=== PATIENT | female | born 1980 | race Caucasian/White ===

== ENCOUNTER 2016-07-18 06:43 | Emergency (ER) | payer OTHER ==
[~2016-07-18] VITALS: Ht 165.1 cm; Wt 49.9 kg
[~2016-07-18 06:43] MED LIST: BETA CAROT10000 UNIT PO; CYCLOBENZAPRINE10 M1 PO; DIAZEPAM2 M1 PO; EPIPEN 2-P0.3 MG/0.3 IM; MOBIC15 M1 PO; TRAMADOL HCL50 M1 PO
[2016-07-18 07:25] VITALS: BP 98/60
--- NOTE | 2016-07-18 07:26 | ED GENERAL ADULT ---
History of Present Illness General Chief Complaint: General Adult Stated Complaint: MED REFILLS, ANXIETY Source: patient Exam Limitations: no limitations Vital Signs & Intake/Output Vital Signs & Intake/Output Vital Signs Date Time Temp Pulse Resp B/P B/P Pulse O2 O2 Flow FiO2 Mean Ox Delivery Rate 07/18 0725 97.8 78 16 98/60 97 07/18 0722 97 Allergies Coded Allergies: Sulfa (Sulfonamide Antibiotics) (ANAPHYLAXIS 01/17/16) venom-honey bee (ANAPHYLAXIS 01/17/16) Reconcile Medications Alprazolam (Xanax) 0.5 MG TABLET 1 TAB PO BIDP PRN ANXIETY Alprazolam (Xanax) 0.5 MG TABLET 1 TAB PO BIDP PRN ANXIETY Beta-Carotene (Beta Carotene) (Unknown Strength) CAPSULE (Unknown Dose) PO DAILY SUPPLEMENT (Reported) Cyclobenzaprine HCl 10 MG TABLET 1 TAB PO TID PRN MUSCLE RELAXANT MAY CAUSE DROWSINESS Diazepam 2 MG TABLET 1-2 TAB PO Q6 PRN muscle relaxant Epinephrine (Epipen 2-Gutierrez) 0.3 MG/0.3 ML AUTO.INJCT 0.3 MG IM AD PRN ALLERGIC REACTION (Reported) Meloxicam (Mobic) 15 MG TABLET 1 TAB PO DAILY PRN PAIN/INFLAMMATION Tramadol HCl 50 MG TABLET 1-2 TAB PO Q6 PRN pain Triage Note: PT STATES SHE TOOK HERSELF OFF METHADONE BECAUSE SHE WAS ON IT FOR A FEW YEARS. PT ALSO TAKES XANAX QHS TO HELP HER SLEEP STATES THAT SHE HAS BEEN TAKING MORE TO HELP HER THROUGH THE WITHDRAWELS FROM THE METHADONE AND RUN OUT. PT WENT TO SEE DR. LIANG AND HE WAS UNABLE TO GET HER MEDS TO GO THROUGH AT THE PHARMACY BECAUSE IT IS TO EARLY FOR HER TO FILL. PT STATES SHE IS ABLE TO P/UP HER PRESCRIPTION ON SUNDAY AND JUST NEEDS A FEW PILLS TO HELP HER THROUGH. PT REPORTS THAT SHE IS HAVING DIARRHEA AND NAUSEA AT THIS TIME HAS NOT HAD XANAX IN 5 DAYS. Triage Nurses Notes Reviewed? yes : No Patient currently breastfeeds: No HPI: This is a 35 year old female who recently came off methadone with an presents with shakiness, nausea and diarrhea. her last ast dose of xanax was 5 days ago. She is due for refill on . She has been taking occasional extra doses secondary to anxiety because she took herself off of methadone. She discussed it with her primary care doctor who states he could refill the medication because her new prescription is due on the . She has not had Xanax in 5 days and is starting to feel shaky. History of seizure many years ago when she was on 2 mg of Xanax and attempted to discontinue. No SI or HI. She reports wanting to eventually get off of Xanax as well. The patient is 7 months . Past History Travel History Traveled to [place] past 21 day No Medical History Any Pertinent Medical History? see below for history Psychiatric: anxiety, HISTORY OF OPIATE DEPENDENCE Other Medical Hx: left shoulder surgery Surgical History Surgical History: left shoulder surgery Psychosocial History What is your primary language Persian Tobacco Use: Current Daily Use Daily Tobacco Use Amount/Type: => 5 Cigarettes daily ETOH Use: occasional use Illicit Drug Use: denies illicit drug use Family History Hx Contributory? No Review of Systems Review of Systems Constitutional: Denies: chills, fever. Respiratory: Denies: cough, short of breath, sputum production. Cardiovascular: Denies: chest pain, palpitations. Neurological/Psychological: Reports: anxiety. Denies: confusion, depressed, emotional problems. Hematologic/Endocrine: Denies: bruising, bleeding. Immunologic/Allergic: Denies: splenectomy. Physical Exam Physical Exam General Appearance: alert, awake, thin Head: atraumatic, normal appearance Eyes: Bilateral: PERRL, EOMI. Ears, Nose, Throat: normal pharynx, hearing grossly normal Neck: normal inspection, supple, full range of motion Respiratory: normal breath sounds, chest non-tender, no respiratory distress Neurologic/Psych: no motor/sensory deficits, awake, alert, oriented x 3 Skin: intact, normal color, warm/dry Core Measures ACS in differential dx? No CVA/TIA Diagnosis: No Severe Sepsis Present: No Septic Shock Present: No Progress Differential Diagnoses I considered the following diagnoses in my evaluation of the patient: [Xanax dependence, Xanax withdrawal] Plan of Care: Patient is well kempt, awake alert and oriented. Requesting a prescription for a few pills of Xanax to get her through . Last dose was on Sunday. Initial ED EKG: none Departure Departure Time of Disposition: 733 Disposition: HOME OR SELF CARE Condition: Stable Clinical Impression Primary Impression: Benzodiazepine withdrawal Referrals: PATIENT HAS NO PRIMARY CARE DR (PCP/Family) Additional Instructions: TAKE THE MEDICATIONS DIRECTED. FOLLOW UP WITH YOUR PSYCHIATRIST FOR YOUR REGULAR PRESCRIPTIONS. Departure Forms: Customer Survey General Discharge Information Prescriptions: Current Visit Scripts Alprazolam (Xanax) 1 TAB PO BIDP PRN ANXIETY #5 TAB Alprazolam (Xanax) 1 TAB PO BIDP PRN ANXIETY #5 TAB Critical Care Note Critical Care Note Critical Care Time: non-applicable
[2016-07-18] MEDS ORDERED: XANAX0.5 M1 PO ×2 (07:35→07:56)
[2016-07-19] MEDS ORDERED: CHLORDIAZEPOXID25 M3 PO (07:35)
[2016-07-19] MEDS ORDERED: ZOFRAN ODT4 M1 SL (07:35)
== END 2016-07-18 07:35 ==
LOC: ERH 06:43
DX: F13.239 Sedative, hypnotic or anxiolytic dependence with withdrawal, unspecified (principal)
CPT/HCPCS: 99281

== ENCOUNTER 2016-07-19 06:41 | Emergency (ER) | payer OTHER ==
[~2016-07-19] VITALS: Ht 160 cm; Wt 52.6 kg
[~2016-07-19 06:41] MED LIST changes: +XANAX0.5 M1 PO
[2016-07-19 07:10] VITALS: BP 90/60
[2016-07-19] MEDS ORDERED: ZOFRAN ODT4 M1 SL (07:35)
[2016-07-19] MEDS ORDERED: CHLORDIAZEPOXID25 M3 PO (07:35)
--- NOTE | 2016-07-19 07:37 | ED GENERAL ADULT ---
History of Present Illness General Chief Complaint: ETOH/Drug Related Complaint Stated Complaint: BENZO WITHDRAWAL Source: patient, old records Exam Limitations: no limitations Vital Signs & Intake/Output Vital Signs & Intake/Output Vital Signs Date Time Temp Pulse Resp B/P B/P Pulse O2 O2 Flow FiO2 Mean Ox Delivery Rate 07/19 0710 98.1 100 20 90/60 98 Room Air Allergies Coded Allergies: Sulfa (Sulfonamide Antibiotics) (ANAPHYLAXIS 07/19/16) venom-honey bee (ANAPHYLAXIS 07/19/16) Reconcile Medications Alprazolam (Xanax) 0.5 MG TABLET 1 TAB PO BIDP PRN ANXIETY Alprazolam (Xanax) 0.5 MG TABLET 1 TAB PO BIDP PRN ANXIETY Beta-Carotene (Beta Carotene) (Unknown Strength) CAPSULE (Unknown Dose) PO DAILY SUPPLEMENT (Reported) Chlordiazepoxide HCl 25 MG CAPSULE 1 TAB PO TIDPRN PRN anxiety 1-2 tabs 3 times a day for 2 days 1-2 tabs 2 times a day for 2 days 1-2 tabs 1 time a day for 2 days Cyclobenzaprine HCl 10 MG TABLET 1 TAB PO TID PRN MUSCLE RELAXANT MAY CAUSE DROWSINESS Diazepam 2 MG TABLET 1-2 TAB PO Q6 PRN muscle relaxant Epinephrine (Epipen 2-Gutierrez) 0.3 MG/0.3 ML AUTO.INJCT 0.3 MG IM AD PRN ALLERGIC REACTION (Reported) Meloxicam (Mobic) 15 MG TABLET 1 TAB PO DAILY PRN PAIN/INFLAMMATION Ondansetron (Zofran Odt) 4 MG TAB.RAPDIS 1 TAB SL TID PRN nausea Tramadol HCl 50 MG TABLET 1-2 TAB PO Q6 PRN pain Triage Note: TRIAGE: PATIENT TO ER FROM HOME REPORTS SEEN HERE ON 07/18/16 BY MD CASILLAS, ARRIVES W/ D/C PAPERWORK FROM PREVIOUS VISIT FOR BENZO W/D. PATIENT REPORTS "WENT TO FILL THE RX BUT IT'S TOO SOON. CAN'T FILL IT UNTIL SUNDAY." PATIENT STATES "CAN YOU DO ANYTHING FOR ME BEFORE THEN BECAUSE I FEEL VERY NERVOUS AND HAVBE A HEADACHE AND FEEL NAUSEOUS AND FEEL LIKE, WHAT IF I HAVE A SEIZURE!?" PATIENT REPORTS LAST BENZO TAKEN 6-7 DAYS AGO, ALSO REPORTS RECENTLY OFF [facility]. PATIENT FIDGITY AND ANXIOUS THROUGHOUT TRIAGE. Triage Nurses Notes Reviewed? yes Onset: reports 4 days Duration: day(s):, constant, continues in ED Timing: recent history Severity: severe No Modifying Factors: none LMP (ages 10-50): unknown : No Patient currently breastfeeds: No HPI: Patient reports no Xanax for 4 days feeling shaky jittery anxious with insomnia anorexia nausea. She denies fever chills vomiting diarrhea chest pain cough shortness of breath headache dysuria rash bleeding . Past History Travel History Traveled to [place] past 21 day No Medical History Any Pertinent Medical History? 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 No Review of Systems Review of Systems Constitutional: Reports: see HPI, chills. EENTM: Reports: no symptoms. Respiratory: Reports: no symptoms. Cardiovascular: Reports: no symptoms. GI: Reports: see HPI, nausea. Genitourinary: Reports: no symptoms. Musculoskeletal: Reports: no symptoms. Skin: Reports: no symptoms. Neurological/Psychological: Reports: see HPI, anxiety. Hematologic/Endocrine: Reports: no symptoms. Immunologic/Allergic: Reports: no symptoms. All Other Systems: Reviewed and Negative Physical Exam Physical Exam General Appearance: well developed/nourished, alert, awake, anxious, mild distress, thin Head: atraumatic, normal appearance Eyes: Bilateral: normal appearance, PERRL, EOMI. Ears, Nose, Throat: normal pharynx, normal ENT inspection Neck: normal inspection, supple, full range of motion, no midline tenderness Respiratory: normal breath sounds, chest non-tender, no respiratory distress, quiet respiration, lungs clear Cardiovascular: regular rate/rhythm, normal peripheral pulses, norml femoral pulses equa Peripheral Pulses: 4+ carotid (R), 4+ carotid (L) Gastrointestinal: normal bowel sounds, soft, non-tender, no organomegaly Back: normal inspection, normal range of motion Extremities: normal inspection, normal capillary refill, normal range of motion, no edema Neurologic/Psych: no motor/sensory deficits, awake, alert, oriented x 3, normal gait, box stamper II-XII nml as tested Reflexes: 2+: bicep (R), bicep (L). Skin: intact, normal color, warm/dry Lymphatic: no anterior cervical mayela Core Measures ACS in differential dx? No CVA/TIA Diagnosis: No Severe Sepsis Present: No Septic Shock Present: No Progress Differential Diagnoses I considered the following diagnoses in my evaluation of the patient: Benzodiazepine withdrawal abuse Plan of Care: librium zofran Initial ED EKG: none Departure Departure Time of Disposition: 733 Disposition: HOME OR SELF CARE Condition: Stable Clinical Impression Primary Impression: Benzodiazepine dependence Referrals: JOSEPH ROBLES MD Departure Forms: General Discharge Information Prescriptions: Current Visit Scripts Chlordiazepoxide HCl 1 TAB PO TIDPRN PRN anxiety #5 CAP 1-2 tabs 3 times a day for 2 days 1-2 tabs 2 times a day for 2 days 1-2 tabs 1 time a day for 2 days Ondansetron (Zofran Odt) 1 TAB SL TID PRN nausea #5 TAB Critical Care Note Critical Care Note Critical Care Time: non-applicable
== END 2016-07-19 07:55 ==
LOC: ERH 06:41
DX: F13.20 Sedative, hypnotic or anxiolytic dependence, uncomplicated (principal)

== ENCOUNTER 2017-06-28 14:45 | Emergency (ER) | payer OTHER ==
[~2017-06-28] VITALS: Ht 160 cm; Wt 54.4 kg
[~2017-06-28 14:45] MED LIST changes: +CHLORDIAZEPOXID25 M3 PO; +CLEOCIN HCL150 M1 PO; +PERCOCET 5-3251 EACH PO; +ZOFRAN ODT4 M1 SL
[2017-06-28 14:58] VITALS: BP 142/94
[2017-06-28 15:41] LABS: ABSOLUTE BASOPHIL COUNT 0.1 /CUMM (0.0-0.2); ABSOLUTE EOSINOPHIL COUNT 0.4 /CUMM (0.0-0.7); ABSOLUTE LYMPH COUNT 3.3 /CUMM (1.2-3.4); ABSOLUTE MONOCYTE COUNT 0.4 /CUMM (0.10-0.60); BASOPHIL % 0.7 % (0.0-2.0); EOSINOPHIL % 3.2 % (0-5); GRANULOCYTE % 63.3 % (42.2-75.2); HEMATOCRIT 41.7 % (37-47); MEAN CORPUSCULAR HGB 31.2 PG (27.0-31.0); MEAN CORPUSCULAR HGB CONC 34.1 G/DL (33.0-37.0); MEAN CORPUSCULAR VOLUME 91.4 FL (81.0-99.0); MEAN PLATELET VOLUME 7.8 FL (7.4-10.4); PLATELET COUNT 332 /CUMM (130-400); RBC DISTRIBUTION WIDTH 13.8 % (11.5-14.5); RED BLOOD CELL CT 4.57 /CUMM (4.20-5.40); WHITE BLOOD CELL COUNT 11.1 /CUMM (4.8-10.8)
[2017-06-28] MEDS ORDERED: CIPRO500 M1 PO (17:20)
[2017-06-28] MEDS ORDERED: PERCOCET 5-3251 EACH PO (17:20)
--- NOTE | 2017-06-28 17:22 | ED GI/GU/ABDOMINAL COMPLAINT ---
History of Present Illness General Chief Complaint: Female Urogenital Problems Stated Complaint: "I THINK I HAVE A KIDNEY INFECTION" Source: patient Exam Limitations: no limitations Vital Signs & Intake/Output Vital Signs & Intake/Output Vital Signs Date Time Temp Pulse Resp B/P B/P Pulse O2 O2 Flow FiO2 Mean Ox Delivery Rate 06/28 1458 97.5 114 18 142/94 99 Room Air Allergies Coded Allergies: Sulfa (Sulfonamide Antibiotics) (ANAPHYLAXIS 07/19/16) codeine (NAUSEA 05/10/17) venom-honey bee (ANAPHYLAXIS 07/19/16) Reconcile Medications Alprazolam (Xanax) 0.5 MG TABLET 1 TAB PO BIDP PRN ANXIETY Alprazolam (Xanax) 0.5 MG TABLET 1 TAB PO BIDP PRN ANXIETY Chlordiazepoxide HCl 25 MG CAPSULE 1 TAB PO TIDPRN PRN anxiety 1-2 tabs 3 times a day for 2 days 1-2 tabs 2 times a day for 2 days 1-2 tabs 1 time a day for 2 days Ciprofloxacin HCl (Cipro) 500 MG TABLET 1 TAB PO BID uti Clindamycin HCl (Cleocin HCl) 150 MG CAPSULE 1 CAP PO TID dental infection Epinephrine (Epipen 2-Gutierrez) 0.3 MG/0.3 ML AUTO.INJCT 0.3 MG IM AD PRN ALLERGIC REACTION (Reported) Ondansetron (Zofran Odt) 4 MG TAB.RAPDIS 1 TAB SL TID PRN nausea Oxycodone HCl/Acetaminophen (Percocet 5-325 MG Tablet) 5 MG-325 MG TABLET 1-2 TAB PO Q6P PRN PAIN Oxycodone HCl/Acetaminophen (Percocet 5-325 MG Tablet) 5 MG-325 MG TABLET 1 TAB PO BID PRN pain Triage Note: PT TO ER C/C UTI SUNDAY, NOW HAS SEVERE LEFT FLANK PAIN, BODY ACHES, CHILLS. PER PT, "I JUST CRANBERRY JUICE TO GET RID OF MY UTI". URGENCY AND DYSURIA PERSISTS Triage Nurses Notes Reviewed? yes ? n Is pt currently ? No Onset: Gradual Duration: day(s): Timing: recent history Quality/Severity: moderate Location: left flank HPI: 36-year-old female presents emergency department complaining of dysuria, urinary frequency, left flank pain x 4 days. Patient has a history of previous UTI. 4 days ago she began experiencing symptoms consistent with previous UTIs. Patient was experiencing dysuria, suprapubic discomfort, urinary frequency, hematuria. Patient recurrent juice however her symptoms did not go away. Over the last 2 days she has been experiencing left flank pain, fevers, chills, body aches, malaise. Flank pain is described as nonradiating, dull aching pain. Patient also reports 2 episodes of nonbloody diarrhea recently. Patient has no previous history of pyelonephritis or kidney stone. The patient is sexually active with her . Patient denies vomiting, constipation, rash. (Oriana Benítez) Past History Travel History Traveled to [place] past 21 day No Medical History Any Pertinent Medical History? 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 No (Oriana Benítez) Review of Systems Review of Systems Constitutional: Reports: see HPI. EENTM: Reports: no symptoms. Respiratory: Reports: no symptoms. Cardiovascular: Reports: no symptoms. GI: Reports: see HPI. Genitourinary: Reports: see HPI. Musculoskeletal: Reports: no symptoms. Skin: Reports: no symptoms. Neurological/Psychological: Reports: no symptoms. Hematologic/Endocrine: Reports: no symptoms. Immunologic/Allergic: Reports: no symptoms. All Other Systems: Reviewed and Negative (Oriana Benítez) Physical Exam Physical Exam General Appearance: well developed/nourished, no apparent distress, alert, awake Head: atraumatic, normal appearance Eyes: Bilateral: normal appearance. Ears, Nose, Throat, Mouth: hearing grossly normal Neck: normal inspection, supple, full range of motion Respiratory: normal breath sounds, no respiratory distress, lungs clear Cardiovascular: regular rate/rhythm Gastrointestinal: normal bowel sounds, soft, non-tender, no organomegaly Back: left CVA tenderness Extremities: normal range of motion Neurologic/Psych: awake, alert, oriented x 3 Skin: intact, normal color, warm/dry Core Measures ACS in differential dx? No Sepsis Present: No Sepsis Focused Exam Completed? No (Layla ASHTON,Oriana Milligan) Progress Differential Diagnosis: appendicitis, intrauterine , kidney stone, ovarian cyst, PID/cervicitis, UTI/pyelo Plan of Care: Orders Procedure Date/time Status Add-on Test (ER Only) 06/28 1721 Active URINE 06/28 1446 Complete URINALYSIS 06/28 1446 Complete COMPREHENSIVE METABOLIC PANEL 06/28 1446 Complete CBC WITHOUT DIFFERENTIAL 06/28 1446 Complete Laboratory Tests 06/28/17 1535: Anion Gap 15, Estimated GFR > 60, BUN/Creatinine Ratio 10.0, Glucose 101 H, Calcium 10.6 H, Total Bilirubin 0.4, AST 15, ALT 22, Alkaline Phosphatase 42, Total Protein 7.8, Albumin 5.1 H, Globulin 2.7, Albumin/Globulin Ratio 1.9, CBC w Diff NO MAN DIFF REQ, RBC 4.57, MCV 91.4, MCH 31.2 H, MCHC 34.1, RDW 13.8, MPV 7.8, Gran % 63.3, Lymphocytes % 29.4, Monocytes % 3.4, Eosinophils % 3.2, Basophils % 0.7, Absolute Granulocytes 7.0 H, Absolute Lymphocytes 3.3, Absolute Monocytes 0.4, Absolute Eosinophils 0.4, Absolute Basophils 0.1 06/28/17 1502: Urine Color YEL, Urine Clarity CLEAR, Urine pH 6.5, Ur Specific [place] <= 1.005 , Urine Protein NEG, Urine Ketones NEG, Urine Nitrite NEG, Urine Bilirubin NEG, Urine Urobilinogen 0.2, Ur Leukocyte Esterase SMALL H, Ur Microscopic SEDIMENT EXAMINED, Urine RBC 3-5, Urine WBC 15-25 H, Ur Epithelial Cells MOD H, Urine Bacteria MOD H, Urine Hemoglobin TRACE-INTACT, Urine Glucose NEG, Urine Test NEGATIVE UA shows evidence for urine infection. Given patient's left-sided CVA tenderness she likely has pyelonephritis. Patient has no abdominal tenderness on physical exam. Her blood work shows mild leukocytosis, otherwise blood work is within normal limits. Patient is young and otherwise healthy. Patient states that she's been waiting in the waiting room for 3 hours, she would just like to go home now. Based on patient's current symptoms is low suspicion for acute appendicitis at this time, CT imaging deferred given her most likely diagnosis is pyelonephritis. Low suspicion for obstructing kidney stone given patient's dural/mild flank pain, minimal blood in urine. Patient in no acute distress, nontoxic appearing, vital signs are stable. The patient was given strict return precautions. She was started on Cipro antibiotics and culture is pending. Patient instructed to increase oral fluid intake. Patient informed that at times visuals require hospitalization for pyelonephritis and she understands red flag symptoms and when to return. The patient agrees with the plan of care. Initial ED EKG: none (Layla ASHTON,Oriana Milligan) Departure Departure Disposition: HOME OR SELF CARE Condition: Stable Clinical Impression Primary Impression: Pyelonephritis Referrals: Patient Has No Primary Care Dr (PCP/Family) Additional Instructions: Take full course of antibiotics. Take Percocet as prescribed as needed for pain. You may also take this medication with 600 mg ibuprofen and an additional 325 mg Tylenol for fevers and pain. If your symptoms are worsening or you're having other concerns please return to the emergency department. We will call you if the results of your culture are abnormal. Please note that there might be incidental findings in your evaluation that are unrelated to the current emergency department visit. Please notify your primary care doctor about this emergency department visit in order to obtain and review all of the testing performed so that these incidental findings can be monitored as needed. If you had an x-ray performed, please understand that some fractures may not be seen on the initial set of x-rays. If your symptoms persist you might need a repeat set of x-rays to check for such a fracture. If you had a laceration evaluated, please understand that foreign bodies such as glass or wood may not be visible to the naked eye or on plain x-rays. If the wound becomes red, swollen, increasingly more painful or if there is any drainage from the wound, please have it reevaluated by a physician for the possibility of a retained foreign body. If you're unable to follow up as outlined in the discharge instructions please return to the emergency department. Thank you for choosing the [facility] Emergency Department for your care. It was a pleasure to serve you today. Departure Forms: Customer Survey General Discharge Information Prescriptions: Current Visit Scripts Ciprofloxacin HCl (Cipro) 1 TAB PO BID #20 TAB Oxycodone HCl/Acetaminophen (Percocet 5-325 MG Tablet) 1 TAB PO BID PRN pain #10 TAB (Layla ASHTON,Oriana Milligan) PA/CUSTOMER ENGAGEMENT SPECIALIST Co-Sign Statement Statement: ED Attending supervision documentation- [] I saw and evaluated the patient. I have also reviewed all the pertinent lab results and diagnostic results. I agree with the findings and the plan of care as documented in the PA's/CUSTOMER ENGAGEMENT SPECIALIST's documentation. [X] I have reviewed the ED Record and agree with the PA's/CUSTOMER ENGAGEMENT SPECIALIST's documentation. [] Additions or exceptions (if any) to the PAs/CUSTOMER ENGAGEMENT SPECIALIST's note and plan are summarized below: [] (Reny JARA,Jose Luis Fry)
== END 2017-06-28 17:30 ==
LOC: ERH 14:45
PROVIDERS: Physician Assistant Medical
DX: N12 Tubulo-interstitial nephritis, not specified as acute or chronic (principal)
CPT/HCPCS: 81001; 81025

== ENCOUNTER 2017-09-24 04:17 | Emergency (ER) | payer OTHER ==
[~2017-09-24] VITALS: Ht 160 cm; Wt 53.5 kg
[~2017-09-24 04:17] MED LIST changes: +CHERATUSSIN AC118 M1 PO; +CIPRO500 M1 PO; +CLARINEX5 M1 PO; +FLONASE ALLERG9.9 ML NAS; +NORCO 5-325 TA1 EACH PO; +PROAIR HFA8.5 GM INH; +TESSALON PERLE100 M1 PO; +VENTOLIN HFA18 GM INH; +ZITHROMAX250 M2 PO
--- NOTE | 2017-09-24 04:24 | ED GENERAL ADULT ---
History of Present Illness General Chief Complaint: Trunk Injury Stated Complaint: PT THINKS BOKE SOME RIBS ON LEFT SIDE Source: patient Exam Limitations: no limitations Vital Signs & Intake/Output Vital Signs & Intake/Output Vital Signs Date Time Temp Pulse Resp B/P B/P Pulse O2 O2 Flow FiO2 Mean Ox Delivery Rate 09/24 530 99 Room Air 09/24 530 72 103/71 99 Room Air 09/24 0429 98.7 88 18 99/61 99 Room Air Allergies Coded Allergies: Sulfa (Sulfonamide Antibiotics) (ANAPHYLAXIS 07/12/17) codeine (NAUSEA 07/12/17) venom-honey bee (ANAPHYLAXIS 07/12/17) naproxen (STOMACH DISCOMFORT 07/12/17) Reconcile Medications Albuterol Sulfate (Proair Hfa) 90 MCG HFA.AER.AD 2 PUF INH Q4-6 PRN PRN WHEEZING,TROUBLE BREATHING Azithromycin (Zithromax) 250 MG TABLET 1 DP PO AD BRONCHITIS 2 the first day followed by 1 for days 2-5 Codeine Phosphate/Guaifenesi (Cheratussin AC Syrup) 10 MG-100 MG/5 ML LIQUID 5 -10 ML PO Q6P PRN COUGH Triage Nurses Notes Reviewed? yes Onset: Abrupt Duration: minute(s): Timing: single episode today HPI: 36 year old female presents to the emergency department with left sided rib pain after breaking here sons fall at the playground today at 1:30. P.m. She complains of tenderness and pain with any type of movement. She denies abdominal pain. She does have scant ecchymosis to the left upper chest wall, it appears faint. Approximately the size of a quarter. Past History Travel History Traveled to [place] past 21 day No Medical History Any Pertinent Medical History? 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 No Review of Systems Review of Systems Constitutional: Reports: see HPI. Denies: fever. EENTM: Reports: no symptoms. Denies: blurred vision, double vision, visual changes. Respiratory: Reports: see HPI. Cardiovascular: Reports: no symptoms. Denies: chest pain, palpitations. GI: Reports: no symptoms. Denies: abdominal pain. Genitourinary: Reports: no symptoms. Musculoskeletal: Reports: see HPI. Skin: Reports: no symptoms. Neurological/Psychological: Reports: no symptoms. Hematologic/Endocrine: Reports: see HPI. Denies: bleeding. Immunologic/Allergic: Reports: no symptoms. All Other Systems: Reviewed and Negative Physical Exam Physical Exam General Appearance: well developed/nourished, alert, awake, mild distress Head: atraumatic, normal appearance Eyes: Bilateral: normal appearance, PERRL, EOMI. Ears, Nose, Throat: normal ENT inspection Neck: normal inspection, full range of motion Respiratory: normal breath sounds, no respiratory distress Cardiovascular: regular rate/rhythm Peripheral Pulses: 4+ radial (R), 4+ radial (L) Gastrointestinal: soft, non-tender Back: normal inspection Extremities: normal inspection, normal range of motion Neurologic/Psych: no motor/sensory deficits, awake, alert, oriented x 3 Skin: ecchymosis (left axillary area) Comments: No tenderness to deep palpation of the left upper quadrant. Core Measures ACS in differential dx? No CVA/TIA Diagnosis: No Sepsis Present: No Sepsis Focused Exam Completed? No Progress Differential Diagnoses I considered the following diagnoses in my evaluation of the patient: [ Pneumothorax, rib fracture, spleen injury, substance abuse] Plan of Care: Orders Procedure Date/time Status Add-on Test (ER Only) 09/24 0530 Active URINE DRUGS OF ABUSE 09/24 044 Complete URINE 09/24 0425 Complete Laboratory Tests 09/24/17 0440: Urine Opiates Screen < 100, Methadone Screen 52, Barbiturate Screen 82, Ur Phencyclidine Scrn < 6.00, Amphetamines Screen 123, U Benzodiazepines Scrn > 800 H, Urine Cocaine Screen > 1000 H, Urine Cannabis Screen > 80.00 H, Urine Test NEGATIVE Initial ED EKG: none Departure Departure Disposition: STILL A PATIENT Condition: Stable Clinical Impression Primary Impression: Rib injury Referrals: Patient Has No Primary Care Dr (PCP/Family) Departure Forms: Customer Survey General Discharge Information Comments 5:40 AM Upon reevaluation The patient is sleepy but wakes to verbal stimuli. She is trying to arrange for a ride home. Abdomen is again soft and nontender, she has no tenderness to the left upper quadrant. x-rays are negative. The patient requested additional medications for pain. Urine drug screen was concerning for substance abuse. The patient was advised to take Tylenol or Advil for the rib pain and to follow-up with her doctor this week. She is ambulating with a steady gait. She called her for a ride home. Critical Care Note Critical Care Note Critical Care Time: non-applicable
[2017-09-24 05:31] VITALS: BP 103/71
--- NOTE | 2017-09-24 05:32 | RADIOLOGY REPORT ---
EXAMINATION: XR RIBS, LEFT CLINICAL INFORMATION: Left rib pain COMPARISON: None TECHNIQUE: 2 views of the left ribs were obtained. PA view of the chest FINDINGS: Lungs are clear. No consolidation, pneumothorax, or pleural effusion. The cardiomediastinal silhouette and pulmonary vasculature are normal. Osseous structures are unremarkable. Ribs are intact. No fractures are identified. IMPRESSION: Clear lungs. No focal rib abnormality.
== END 2017-09-24 06:30 ==
LOC: ERH 04:17
DX: S29.9XXA Unspecified injury of thorax, initial encounter (principal); R07.81 Pleurodynia; X50.9XXA Other and unspecified overexertion or strenuous movements or postures, initial encounter; Y93.9 Activity, unspecified; Y92.830 Public park as the place of occurrence of the external cause
CPT/HCPCS: 71100-LT; 80307; 81025

== ENCOUNTER 2017-11-02 09:55 | Emergency (ER) | payer OTHER ==
[~2017-11-02] VITALS: Ht 160 cm; Wt 57.2 kg
[2017-11-02] MEDS ORDERED: NORCO 5-325 TA1 EACH PO (11:58)
[2017-11-02] MEDS ORDERED: AUGMENTIN 875-1 EACH PO (11:58)
--- NOTE | 2017-11-02 11:59 | ED THROAT/DENTAL COMPLAINT ---
History of Present Illness General Chief Complaint: Sore Throat, Dental Pain Stated Complaint: DENTAL PAIN Source: patient Exam Limitations: no limitations Vital Signs & Intake/Output Vital Signs & Intake/Output Vital Signs Date Time Temp Pulse Resp B/P B/P Pulse O2 O2 Flow FiO2 Mean Ox Delivery Rate 11/02 0959 98.5 118 18 121/87 99 Room Air Allergies Coded Allergies: Sulfa (Sulfonamide Antibiotics) (ANAPHYLAXIS 07/12/17) codeine (NAUSEA 07/12/17) venom-honey bee (ANAPHYLAXIS 07/12/17) naproxen (STOMACH DISCOMFORT 07/12/17) Reconcile Medications Albuterol Sulfate (Proair Hfa) 90 MCG HFA.AER.AD 2 PUF INH Q4-6 PRN PRN WHEEZING,TROUBLE BREATHING Amoxicillin/Potassium Clav (Augmentin 875-125 Tablet) 875 MG-125 MG TABLET 1 TAB PO BID DENTAL INFECTION Azithromycin (Zithromax) 250 MG TABLET 1 DP PO AD BRONCHITIS 2 the first day followed by 1 for days 2-5 Codeine Phosphate/Guaifenesi (Cheratussin AC Syrup) 10 MG-100 MG/5 ML LIQUID 5 -10 ML PO Q6P PRN COUGH Hydrocodone/Acetaminophen ([place] 5-325 Tablet) 5 MG-325 MG TABLET 1-2 TAB PO Q4-6 PRN PRN SEVERE PAIN Triage Note: 37F REPORTS SHE HAD AN ABSCESS TO BOTTOM LEFT TOOTH/GUM LINE, INTERMITTENT PAIN AND EXACERBATION OF PAIN. REPORTS BLEEDING AND YELLOW PURULENT DRAINAGE RECENTLY. NOT CURRENTLY ON ANTIBIOTICS. WAS REFERRED TO AN ORAL SURGEON BUT SHE CANNOT GET ENOUGH OF THE COST COVERED FOR SURGICAL INTERVENTION. AFEBRILE. TOOK MOTRIN 600MG 5:30 AND ALEVE AT 6:30AM. MEDICATED WITH TYLENOL IN TRIAGE Triage Nurses Notes Reviewed? yes Onset: Abrupt Duration: week(s): (3), constant, continues in ED, getting worse Timing: recent history Injury Environment: home Severity: moderate, severe Severity Numbers: 8 No Modifying Factors: none Modifying Factors: Worsens With: movement. : No Patient currently breastfeeds: No HPI: 37-year-old female history of anxiety, chronic dental pain presents for evaluation of worsening pain in her teeth. Patient reports for the past several weeks she has had pain and swelling and discharge coming from her left lower gums and molars. She reports she saw a dentist a couple weeks ago and was told that she needed a surgical procedure and was referred to a surgeon. She states she was unable to afford the cost which was several thousand dollars. She reports she has been saving up and is in the process of scheduling it but reports that the pain is continuing to get worse. Currently she is taking Aleve and ibuprofen without any relief. She is not on antibiotics. She is able tolerate fluids no fevers no difficulty swallowing difficulty breathing. She is not a diabetic. (Balbir aPrk) Past History Travel History Traveled to [place] past 21 day No Medical History Any Pertinent Medical History? 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 No ([place]) Review of Systems Review of Systems Constitutional: Reports: no symptoms. EENTM: Reports: mouth pain, tooth pain. Respiratory: Reports: no symptoms. Cardiovascular: Reports: no symptoms. GI: Reports: no symptoms. Genitourinary: Reports: no symptoms. Musculoskeletal: Reports: no symptoms. Skin: Reports: no symptoms. Neurological/Psychological: Reports: no symptoms. Hematologic/Endocrine: Reports: no symptoms. Immunologic/Allergic: Reports: no symptoms. All Other Systems: Reviewed and Negative ([place]) Physical Exam Physical Exam General Appearance: well developed/nourished, no apparent distress, alert, awake Head: atraumatic, normal appearance Eyes: Bilateral: normal appearance, EOMI. Ears: Bilateral: canal normal, Tympanic normal. Nose: normal inspection Mouth/Throat: very poor dentition overall multiple dental carries multiple missing riding cracked teeth. There is tenderness to palpation of the left lower molars. No point tenderness no focal fluctuant areas no erythema and no discharge no swelling. No lymphadenopathy no erythema over the buccal mucosa or gingiva. No trismus patient is handling secretions noted tonsillar swelling or exudate Neck: normal inspection, supple, full range of motion Cardiovascular/Respiratory: normal breath sounds, normal peripheral pulses, regular rate/rhythm, no respiratory distress Back: normal inspection, normal range of motion Neurologic/Psych: no motor/sensory deficits, awake, alert, oriented x 3, normal gait, normal mood/affect Skin: intact, normal color, warm/dry Core Measures ACS in differential dx? No Sepsis Present: No Sepsis Focused Exam Completed? No ([place]) Progress Differential Diagnosis: aspirated tooth, carious tooth, epiglottitis, Ludwigs angina, odontogenic abscess, lupillo-tonsillar abscess, pharyngeal for. body, stomatitis/gingivitis, tooth fracture Plan of Care: Patient is here with acute on chronic dental pain. She is in the process of getting a surgery but has not yet scheduled it due to insurance/financial issues. On exam she has tenderness to the left lower teeth without evidence of abscess trismus or significant infection. There is no erythema and no swelling no discharge no focal fluctuant areas. Patient will be covered with Augmentin. Advised increasing fluids rest apply ice medical mouthwash. Tylenol ibuprofen [place] for pain. Follow-up with dental surgeon as soon as possible discussed return precautions patient agrees ([place]) Departure Departure Disposition: HOME OR SELF CARE Condition: Stable Clinical Impression Primary Impression: Chronic dental pain Referrals: Patient Has No Primary Care Dr (PCP/Family) Additional Instructions: ANTIBIOTICS DIRETCED FOR FULL COURSE. TYLENOL/IBUPROFEN FOR PAIN. NOROC FOR SEVERE PAIN ONLY. YOU NEED TO BE SEEN BY A DENTIST SAY. RETURN WITH FEVER, WORSENING PAIN, UNABLE TO SWALLOW FLUIDS OR ANY OTHER CONCENRS. Departure Forms: Customer Survey General Discharge Information Prescriptions: Current Visit Scripts Amoxicillin/Potassium Clav (Augmentin 875-125 Tablet) 1 TAB PO BID #20 TAB Hydrocodone/Acetaminophen ([place] 5-325 Tablet) 1-2 TAB PO Q4-6 PRN PRN SEVERE PAIN #10 TAB ([place]) PA/LINTER SAW SHARPENER Co-Sign Statement Statement: ED Attending supervision documentation- I saw and evaluated the patient. I have also reviewed all the pertinent lab results and diagnostic results. I agree with the findings and the plan of care as documented in the PA's/LINTER SAW SHARPENER's documentation. x I have reviewed the ED Record and agree with the PA's/LINTER SAW SHARPENER's documentation. [] Additions or exceptions (if any) to the PAs/LINTER SAW SHARPENER's note and plan are summarized below: [] (Jesse JARA,Esteban)
[2017-11-02 12:04] VITALS: BP 120/82
== END 2017-11-02 12:05 ==
LOC: ERH 09:55
DX: K08.89 Other specified disorders of teeth and supporting structures (principal)